=== PATIENT | female | born 1990 ===

== ENCOUNTER 2019-10-16 18:49 | Emergency (ER) | payer OTHER ==
[~2019-10-16] VITALS: Ht 154.9 cm; Wt 65.8 kg
[2019-10-16] MEDS ORDERED: ALLERCLEAR10 MG PO (19:29)
[2019-10-16] MEDS ORDERED: PRED20 PO (19:29)
== END 2019-10-16 19:41 | disposition home or self-care (01) ==
LOC: ER 18:49
DX: L50.9 Urticaria, unspecified (principal); R01.1 Cardiac murmur, unspecified
CPT/HCPCS: 99282; J7512

== ENCOUNTER → 2023-12-09 | Outpatient (CLI) | payer OTHER ==
[~2023-12-09] MED LIST: ALLERCLEAR10 MG PO; PRED20 PO
== END ==
LOC: LAB SHORT 18:00 → LAB 18:00
DX: R53.82 Chronic fatigue, unspecified (principal)
CPT/HCPCS: 83036; 84443